=== PATIENT | female | born 2000 | race Caucasian/White ===

== ENCOUNTER 2023-06-21 18:24 | Emergency (ER) | payer OTHER, SELFPAY ==
--- NOTE | ~2023-06-21 | CT_ITS ---
EXAMINATION: CT HEAD WITHOUT CONTRAST CLINICAL INFORMATION: Trauma. Syncope. COMPARISON: None available. TECHNIQUE: Contiguous axial imaging was performed from the skull base to vertex without intravenous administration of contrast. This CT examination was performed using dose optimization techniques as appropriate, variously including the following: *Automated exposure control *Adjustment of mA and/or kV according to patient size (this includes techniques or standardized protocols for targeted exams where dose is matched to indication/reason for exam; i.e. extremities or head) *Use of iterative reconstruction technique DLP: 604 mGy-cm FINDINGS: The lateral, third and fourth ventricles are normally outlined. The cortical sulci and basal cisterns are normally outlined as well. There is no acute territorial defect, hemorrhage or midline shift. The extra-axial spaces are unremarkable. Calvarium: Intact. Maxillofacial sinuses and mastoids: Clear as visualized. CT/CT head/brain wo IV con IMPRESSION: No acute intracranial pathology.
[2023-06-21 18:41] VITALS: BP 134/80; PULSE 91; RESP 18; TEMP 37.1; O2SAT 98; BMI 27.2
--- NOTE | 2023-06-21 18:46 | ECG_ITS ---
Test Reason : pain Blood Pressure : / mmHG Vent. Rate : 083 BPM Atrial Rate : 083 BPM P-R Int : 128 ms QRS Dur : 078 ms QT Int : 380 ms P-R-T Axes : 049 033 037 degrees QTc Int : 446 ms Normal sinus rhythm with sinus arrhythmia RSR' or QR pattern in V1 suggests right ventricular conduction delay Nonspecific T wave abnormality Anterior leads Abnormal ECG No previous ECGs available Referred By: Tone Ward Electronically Signed By:MAR PEACOCK MD
--- NOTE | 2023-06-21 18:46 | ED.GENADULT ---
HPI - General Adult General Chief complaint: Anxiety Stated complaint: ANXIETY Time Seen by Provider: 06/21/23 19:59 Source: patient and family () Mode of arrival: EMS Limitations: language barrier (Patient speaks Armenian, speaks some Ethiopian, Armenian iPad hourly sign language interpreter used) History of Present Illness HPI narrative: 23-year-old female who presents emergency department for evaluation syncopal episode and head injury. The patient was in an elevator and the elevator malfunction the patient was in the elevator for approximately 40 minutes. She began to have difficulty breathing and told her that she did not have any air to breathe. She states that she developed numbness in her lips then face. Her tongue became numb. Her hands and feet became numb. She also developed a tightness in her chest. The patient then had a syncopal episode and hit her head. states the patient was altered for 30-40 minutes. At 1 point the patient's tried to punch out the glass of the elevator but was unsuccessful. The patient was then brought to the emergency department for evaluation. At the time my evaluation, the patient was awake and alert, she was able answer questions without any difficulty, she was sitting upright in the stretcher. Related Data Allergies Allergy/AdvReac Type Severity Reaction Status Date / Time No Known Allergies Allergy Verified 06/21/23 18:40 Review of Systems Review of Systems: Yes all other systems are reviewed and are negative [facility] Past Medical History [facility] Narrative: Past medical history: x2 months. Social history: She is she is here with her . She denies tobacco, alcohol and drug use. Social History Social History Smoked in Last 30 Days: No Use of substances other than those prescribed or required for medical reasons: No Advance Directives: No Physical Exam ED Vital Signs: Vital Signs - 24 hr 06/21/23 18:41 06/21/23 20:58 Temperature 98.8 F Pulse Rate 91 74 Respiratory Rate 18 19 Blood Pressure 134/80 116/74 Pulse Oximetry 98 97 Oxygen Delivery Method Room Air Room Air BMI result Body Mass Index 27.2 Vital signs were normal Exam General: Awake, alert in no distress Head: Normocephalic, patient has a small hematoma to her right forehead, this is nontender to palpation EENT: PERRL, Lids normal, sclera normal, conjunctiva normal, nose normal , ears normal, throat without erythema or exudates Neck: Supple, no adenopathy, no trachea midline or C-spine tenderness Lung: breath sounds symmetric, no wheezing, rales or rhonchi Chest: symmetric movement, nontender Heart: regular rate and rhythm, normal S1, S2 no murmurs or rubs Abdomen: soft, non-tender, nondistended, normal bowel sounds Back: no vertebral tenderness, no CVAT Extremities: no deformities, moves all extremities symmetrically Skin: no rashes, no lesion, normal color and warmth Neuro: Awake, alert, oriented, normal speech, cranial nerves intact, moves all extremities symmetrically Psych: Pleasant, cooperative Course Course Course Narrative: RME- 23-year-old primarily Samoan-speaking female presents for evaluation of anxiety and chest pain. Her symptoms started after she was ?[place] elevator [place]. ? She states that she is 2 months and her child still. Medical Decision Making Medical Decision Making [facility] Narrative: 23-year-old female x2 months who was trapped in an elevator and then developed chest pain, shortness of breath, perioral and facial numbness as well as bilateral hand and feet numbness. Patient then had a syncopal episode, struck her head and according to her was altered for 30-40 minutes. Patient's vital signs were normal. Physical exam did reveal a small hematoma to the right side of her forehead which was nontender. Her neurologic exam was nonfocal. Patient had a CT scan of the brain which revealed no acute fracture or bleed. Patient's presentation is consistent with acute hyperventilation/panic attack syndrome. I did discuss this with the patient and the patient's . Patient was given printed and verbal instructions and discharged home. Differential Diagnosis Differential Diagnoses: The differential diagnosis associated with the presentation includes Differential diagnosis includes was not limited to anxiety, panic attack, hyperventilation syndrome, closed head injury, skull fracture, intracranial bleed Admission/Observation Consideration of admission/observation: Escalation of care including admission/observation considered Radiology Impression Discussion of test interpretation with radiology: I have reviewed the radiologist's reading. Radiologist Impression: CT head/brain wo IV con IMPRESSION: No acute intracranial pathology. Dictated By: Dhruv Messina Independent Historian Clinical information obtained from an independent historian. History obtained from or confirmed by: Spouse Discharge Plan Discharge Clinical Impression: Hyperventilation, Closed head injury, Concussion Patient Disposition: Home, Self-Care Instructions: Hyperventilation (ED), Concussion (ED) Additional Instructions: The CT scan of your brain did not reveal any skull fractures or bleeding in the brain which is reassuring Your symptoms are consistent with hyperventilation syndrome and a concussion. Take Tylenol (acetaminophen) 500 mg pills, 2 pills every 6 hours as needed for pain or fever. Follow-up with your doctor in 2 days. Please return to the emergency department if your symptoms get worse or if you develop any symptoms that are concerning to you. Interventions: ED Discharge Assessment Last Done: 06/21/23 21:19 Discharge Date/Time: 06/21/23 21:20
--- NOTE | 2023-06-21 20:16 | PC.NURSE ---
pt Hungarian speaking only digital hand gluer and slicer used. pt axox4; reports being stuck in an elevator at the [employer] approx 40 min - with her states she had a syncope episode; +headstrike; unconscious approx 3-4 min. - thinners. pt states she was having anxiety/cp prior to loc. pt reports 10/10 NOBLE at this time; cp resolved. neuros intact. Dr. Hernandez at bedside for primary eval.
--- NOTE | 2023-06-21 20:50 | PC.NURSE ---
PT RETURN FROM CT SCAN STATING NEEDS TO GO HOME TO ATTEND TO BABY. DR. BUCHANAN NOTIFIED.
[2023-06-21 20:58] VITALS: BP 116/74; PULSE 74; RESP 19; O2SAT 97
== END 2023-06-21 21:20 | disposition home or self-care (01) ==
PROVIDERS: Emergency Provider Emergency Medicine Emergency Medical Services
DX: R06.4 Hyperventilation (principal); R55 Syncope and collapse; S06.0X0A Concussion without loss of consciousness, initial encounter; W18.39XA Other fall on same level, initial encounter; F41.9 Anxiety disorder, unspecified; Y93.89 Activity, other specified; Y92.59 Other trade areas as the place of occurrence of the external cause; Y99.9 Unspecified external cause status
CPT/HCPCS: 70450; 93005; 99284

== ENCOUNTER 2023-06-28 12:33 | Emergency (ER) | payer OTHER, SELFPAY ==
[2023-06-28 13:18] VITALS: BP 109/68; PULSE 75; RESP 18; TEMP 36.4; O2SAT 99; BMI 27.1
--- NOTE | 2023-06-28 13:19 | ED_ITS ---
HPI - General Adult General Chief complaint: General Medical Stated complaint: Issues with Blood Pressure Time Seen by Provider: 06/28/23 14:23 Source: patient and certified court interpreter Mode of arrival: ambulatory Limitations: language barrier History of Present Illness HPI narrative: Patient is a 23-year-old Barbadian-speaking female presenting to the emergency department with complaint of intermittent headaches and intermittent dizziness. Patient was seen in this ED on 06/21 for a head injury after syncope/fall after being trapped in an elevator. Has take Tylenol for headaches with temporary relief. Denies worst headache of life, denies headaches worst at onset. Denies syncope. Denies any visual changes. Reports nausea which is worse at nighttime, denies vomiting. Unsure if she is , states she gave in March of this year. MD complaint: headaches Onset (ago): day(s) Location: head Radiation: non-radiation Severity: moderate Quality: aching Pain Consistency: intermittent Relieving factors: medication Exacerbating factors: none Associated symptoms: nausea/vomiting (Reports nausea, denies vomiting) Treatments prior to arrival: other (Tylenol) Related Data Previous Rx's Medication Instructions Recorded ondansetron 4 mg disintegrating 4 mg PO Q8H PRN nausea and 06/28/23 tablet vomiting #10 tabs Allergies Allergy/AdvReac Type Severity Reaction Status Date / Time No Known Allergies Allergy Verified 06/21/23 18:40 Review of Systems Review of Systems: As per HPI. Yes all other systems are reviewed and are negative Constitutional: Constitutional: Reports as per HPI [facility] Social History Social History Advance Directives: No Advance Directives Information Provided: No Physical Exam ED Vital Signs: Vital Signs - 24 hr 06/28/23 13:18 Temperature 97.5 F Pulse Rate 75 Respiratory Rate 18 Blood Pressure 109/68 Pulse Oximetry 99 Oxygen Delivery Method Room Air BMI result Body Mass Index 27.1 Vital signs have been reviewed and appear to be correct. Blood pressure normal. Heart rate normal. Respiratory rate normal. Temperature normal. Oxygen saturation normal. Const General: cooperative, healthy appearing and no acute distress Orientation/consciousness: oriented to person, oriented to place, oriented to time and patient oriented x3 Limitations: no limitations HENMT Head: Yes normocephalic and Yes atraumatic Ears: external ears normal General nose exam: Normal external nose present Face and sinus: Yes face symmetric Mouth: oropharynx normal and moist mucous membranes Throat: Yes uvula midline Eyes Pupils: Equal, round and reactive pupils present Neck Neck: Yes normal visual inspection, Yes no meningeal signs and Yes supple Resp Effort & Inspection: normal respiratory effort and able to speak in complete sentences Auscultation: clear to auscultation bilaterally Cardio Rate: regular rate Rhythm: regular rhythm Heart sounds: S1 normal heart sound present and S2 normal heart sound present GI Palpation (GI): Soft to palpation and nontender Auscultation: normoactive bowel sounds General: Yes no CVA tenderness Back/Spine/Pelvis Back: no CVA tenderness Skin General skin exam: elasticity normal and turgor normal Neuro General: oriented to person, oriented to place, oriented to time, patient oriented x3, gait normal, tone normal, moves all extremities, Normal light touch and pain sensation, no meningeal signs, no focal motor deficits and CN's II-XI intact bilaterally Cranial nerves: Yes Equal, round and reactive pupils present Cognition (Neuro): normal cognition Gait exam (Neuro): Normal gait present Motor exam (neuro): 5/5 motor strength present throughout, Pronator motor function not present, no tremor noted, Normal motor muscle tone present throughout and Motor abnormalities not present Sensory Exam: Normal double simultaneous stimulation for sensation Extrem General: Yes full ROM, Yes no pedal edema and Yes no calf tenderness Psych Mental Status: mental status grossly normal Affect: normal affect Thought process: Normal thought process present Medical Decision Making Medical Decision Making [facility] Narrative: Patient is a 23-year-old Barbadian-speaking female presenting to the emergency department with complaint of headaches and intermittent dizziness. On exam patient is awake, A+Ox3, VS WNL, afebrile, normal neurological exam without focal deficits, physical exam findings as above. Given reported symptoms and physical exam findings, initial differential includes post concussion syndrome, . Patient had CT head after fall on 06/21 which was negative. Do not suspect SAH/ICH. Urine negative. Feel patient is stable for discharge home, advised patient alternate Tylenol and ibuprofen every 3 hours, will prescribe Zofran as needed for nausea. Will refer patient to neurology for further evaluation of symptoms. Return precautions discussed with patient via certified court interpreter. Patient verbalized understanding of and agreement with plan. Differential Diagnosis Differential Diagnoses: The differential diagnosis associated with the presentation includes As per [facility]. Lab Data [facility] Lab Attestation statement: I reviewed the patient's lab results. As per [facility]. Labs: Lab Results 06/28/23 Range/Units 13:35 Urine Color Yellow Urine Appearance Cloudy Urine pH 5.5 (5.0-9.0) Ur Specific [place] 1.020 (1.005-1.025) Urine Protein Trace (Neg-Trace) mg/dL Urine Glucose (UA) Negative (Negative) mg/dL Urine Ketones Negative (Negative) mg/dL Urine Blood Negative (Negative) Urine Nitrite Negative (Negative) Ur Leukocyte Esterase Moderate (2+) H (Negative) Urine RBC 0-2 (0-2) /HPF Urine WBC 21-50 H (0-5) /HPF Ur Squamous Epith Cells >20 (0-2) /HPF Urine Bacteria 4+ (None Seen) Hyaline Casts 3-5 (0-2) /LPF Urine Test NEGATIVE (NEGATIVE) External Record Review External record reviewed: Inpatient record, Office record and Outpatient record Prescription Management I considered prescription management with: Other Discharge Plan Discharge Clinical Impression: Post-concussion syndrome Patient Disposition: Home, Self-Care Instructions: Post Concussion Syndrome (ED) Additional Instructions: You were evaluated in the emergency department today for headache, dizziness and nausea which are likely due to post concussion syndrome from your head injury 1 week ago. We recommend that you take 600 mg ibuprofen or 650 mg of Tylenol every 6 hours for your headache. If necessary, you should alternate these medications every 3 hours. For example, at noon take Tylenol, then at 3:00 p.m. take ibuprofen, then at 6:00 p.m. take Tylenol. You are being prescribed ondansetron which is a medication for nausea. Please use this as prescribed. You are being referred to the neurologist for any ongoing symptoms. Please call their office to make an appointment. Return to the emergency department if you develop persistent vomiting, changes in vision, difficulty with everyday tasks, confusion, new weakness, numbness or tingling, or any other concerning symptoms. Prescriptions: New ondansetron 4 mg tablet,disintegrating 4 mg PO Q8H PRN (Reason: nausea and vomiting) Qty: 10 0RF Referrals: Gio Samuels MD [Physician] -
[2023-06-28 13:50] LABS: Appearance Urine Cloudy; Bacteria Urine 4+ (None Seen); Color Urine Yellow; Glucose Urine UA Negative (Negative); Leukocyte Esterase Urine Moderate (2+) (Negative); Nitrite Urine Negative (Negative); PH 5.5 (5.0-9.0); RBC Urine 0-2 /HPF (0-2); Squamous Epithelial Cell Urine >20 /HPF (0-2); UACC Culture Trigger YES; UMIC TRIGGER UACC YES; Urine Blood Negative (Negative); Urine Ketones Negative (Negative); Urine Protein Trace mg/dL (Neg-Trace); WBC Urine 21-50 /HPF (0-5)
[2023-06-28 14:13] LABS: UPreg QC Valid YES; Urine Pregnancy NEGATIVE (NEGATIVE)
== END 2023-06-28 15:22 | disposition home or self-care (01) ==
PROVIDERS: Registered Nurse Emergency; Emergency Provider Emergency Medicine
DX: F07.81 Postconcussional syndrome (principal); R11.2 Nausea with vomiting, unspecified; Z79.899 Other long term (current) drug therapy
CPT/HCPCS: 81001; 81025; 87086; 99282; 99283